=== PATIENT | female | born 1955 | race Caucasian/White ===

== ENCOUNTER 2022-01-18 10:28 | Emergency (ER) | payer OTHER ==
[2022-01-18] MEDS ORDERED: Morphine 4 MG/ML Syringe IVPUSH PRN (10:49)
[2022-01-18] MEDS ORDERED: Aspirin 81 MG Tab.Chew PO ONE (10:49)
[2022-01-18] MEDS ORDERED: Nitroglycerin 0.4 MG Tab.SL SL PRN (10:49)
[2022-01-18] MEDS ORDERED: Sodium Chloride 0.9% 10 ML Syringe FLUSH PRN (10:49)
[2022-01-18 11:08] LABS: ESTIMATED GFR > 60 (>60); TROPONIN I HIGH SENSITIVITY 7.5 pg/mL (<=60.3)
== END 2022-01-18 12:14 | disposition home or self-care (01) ==
LOC: JP.ED 10:28
DX: R07.89 Other chest pain (principal); I25.10 Atherosclerotic heart disease of native coronary artery without angina pectoris; I25.2 Old myocardial infarction; E78.00 Pure hypercholesterolemia, unspecified; I10 Essential (primary) hypertension; Z88.1 Allergy status to other antibiotic agents; Z79.899 Other long term (current) drug therapy; Z79.82 Long term (current) use of aspirin
CPT/HCPCS: 36415; 71045; 71045-26; 80053; 84484; 85025; 93005; 93010; 99284; 99285-25; A9270-GY